=== PATIENT | female | born 1960 | race Caucasian/White ===

== ENCOUNTER → 2017-09-20 | Outpatient (CLI) | payer OTHER | END | disposition home or self-care (01) | LOC: RAD 10:06 | DX: T84.116A Breakdown (mechanical) of internal fixation device of bone of right lower leg, initial encounter (principal); M85.861 Other specified disorders of bone density and structure, right lower leg; M21.861 Other specified acquired deformities of right lower leg | CPT/HCPCS: 73600 ==